=== PATIENT | female | born 1970 | race Caucasian/White ===

== ENCOUNTER 2016-08-30 10:12 | Emergency (ER) | payer BC, MEDICARE ==
--- NOTE | ~2016-08-30 | EKG ---
PATIENT: RONNY TEMPLE UNIT #: [id number] Ventricular Rate: 96 BPM Atrial Rate: 96 BPM P-R Interval: 158 ms QRS Duration: 68 ms Q-T Interval: 354 ms QTC Calculation(Bezet): 447 ms P [place]: 67 degrees Calculated R [place]: 33 degrees Calculated T [place]: 48 degrees Diagnosis Line: Normal sinus rhythm Diagnosis Line: Normal ECG Diagnosis Line: When compared with ECG of 07-MAR-2016 18:19, Diagnosis Line: No significant change was found Diagnosis Line: Confirmed by LAUREN DELUCA MD ([id number]) on Diagnosis Line: 10/13/2016 4:07:12 PM INTERPRETING MD: MEDINA
--- NOTE | ~2016-08-30 | CT16 ---
[facility]. [facility] A Service of [facility] RADIOLOGY TEXT RESULTS PATIENT: RONNY TEMPLE LOCATION: SED : 68 UNIT #: [id number] AGE: [address]: Hernandez Mancilla MD SEX: F ORDER DR: [id number] [address] [address] [id number] MR#: [id number] Acc #: [id number] NAME: RONNY TEMPLE : 1970 SEX: F STUDY DATE/TIME: 08/30/2016 12:02 UNIT: SED ROOM: STUDY DESCRIPTION: CT Angio Chest for PE Attending Physician: Hernandez Mancilla M.D. Ordering Physician: Hernandez Mancilla M.D. Primary Care Physician: Samuel Cortés M.D. MEDICAL IMAGING REPORT This report is preliminary unless electronic signature is present. EXAM CT angiogram chest PE protocol HISTORY Right shoulder pain after moving furniture for 2 days. Dull chest pain today. Elevated D-dimer. TECHNIQUE Axial images were performed through the chest following IV contrast. 3-D coronal reconstructed images reviewed at a workstation. This CT exam was performed with one or more of the following radiation dose reduction techniques: automatic exposure control, adjustment of mA and/or kV according to patient size, and iterative reconstruction. FINDINGS Pulmonary parenchyma unremarkable except for a densely calcified left upper lobe granuloma. Normal enhancement of the pulmonary arteries. No evidence of embolus. Heart size within normal limits. Calcified mediastinal nodes compatible with prior granulomatous disease. Upper abdomen unremarkable. Osseous structures, thoracic inlet unremarkable. IMPRESSION No acute intrathoracic abnormality. In particular, no evidence of pulmonary embolus. Dictated by... Jessie Loya M.D. THIS IS AN ELECTRONICALLY VERIFIED REPORT Jessie Loya M.D. at 08/30/2016 5:03 PM HERRERA/flip [facility] A Service [facility] RADIOLOGY TEXT RESULTS PATIENT: RONNY TEMPLE LOCATION: SED : [birth year] UNIT #: [id number] AGE: [address]: Hernandez Mancilla MD SEX: F ORDER DR: TD: 08/30/2016 15:21 JOB #: [id number] MEDICAL IMAGING REPORT
--- NOTE | ~2016-08-30 | CR230 ---
[facility]. [facility] A Service of [facility] RADIOLOGY TEXT RESULTS PATIENT: RONNY TEMPLE LOCATION: SED : [birth year] UNIT #: [id number] AGE: [address]: Hernandez Mancilla MD SEX: F ORDER DR: [id number] [place] [id number] MR#: [id number] Acc #: [id number] NAME: RONNY TEMPLE : 1970 SEX: F STUDY DATE/TIME: 08/30/2016 12:09 UNIT: SED ROOM: STUDY DESCRIPTION: CR Shoulder Min 2 View Rt Attending Physician: Hernandez Mancilla M.D. Ordering Physician: Hernandez Mancilla M.D. Primary Care Physician: Samuel Cortés M.D. MEDICAL IMAGING REPORT This report is preliminary unless electronic signature is present. EXAM 3 views of the right shoulder INDICATION Right shoulder pain after moving furniture 2 days ago. Patient reports still chest pain today. FINDINGS No acute fracture or subluxation of the right shoulder is identified. No aggressive osseous abnormalities are seen. Patient does have some mild degenerative changes involving the right AC joint. There is surgical clips seen within the sella. IMPRESSION No acute findings. Dictated by... Madeline Daniels M.D. THIS IS AN ELECTRONICALLY VERIFIED REPORT Madeline Daniels M.D. at 08/30/2016 5:25 PM AFF/aa TD: 08/30/2016 15:38 JOB #: [id number] MEDICAL IMAGING REPORT
[~2016-08-30 10:12] MED LIST: ALBUTEROL 0.5ML INH; ALBUTEROL INHALER; ALBUTEROL NEB; ALBUTEROL17 GM IN; ALBUTEROL20 ml INH; ALLERGY10 M2 PO; ASPIRIN PO; ASPIRIN325 M1 PO; BAYER ASPIRIN325 M1 PO; COMBIVENT U/D3 M2 INH; DICLOFENAC PO; ECOTRIN325 MG PO; FLEXERIL PO; GABAPENTIN300 M2 PO; GABAPENTIN300 MG PO; LIPITOR PO; MEDROL DOSEPAK4 MG PO; MEDROL PO; MIRAPEX0.25 MG PO; MUSCLE RELAXER; NEURONTIN; NEURONTIN PO; NEURONTIN300 MG PO; NICOTINE TRANSD14 MG TD; OMEPRAZOLE20 M1 PO; PEPCID PO; PHENERGAN25 MG PO; PRAVACHOL20 MG PO; PREDNISONE PO; PRILOSEC20 MG PO; PROTONIX PO; RESTLESS LEG MED PO; SYMBICORT IN; TESSALON200 MG PO; TOPAMAX PO; TRAMADOL HCL50 M1 PO; TYLENOL325 M1 PO; VICODIN 5/500 T1 TAB PO; VITAMIN B12 INJECT; VOLTAREN75 MG PO; XOPENEX0.31 MG/3; ZANAFLEX2 M1 PO; ZANAFLEX2 MG PO; ZANAFLEX4 M1; ZANAFLEX4 M1 PO; ZANTAC150 MG PO; [UNRECOGNIZED DRUG - REMARK]
[2016-08-30 11:11] LABS: BASOPHIL% 0.5 % (0-2.5); EOSINOPHIL# 0.1 X10e3 (0-0.7); EOSINOPHIL% 1.3 % (0.0-7.0); HEMATOCRIT 40.4 % (35.0-45.0); HEMOGLOBIN 13.5 gm/dL (12.0-16.0); LYMPHOCYTE# 2.1 X10e3 (1.0-3.5); LYMPHOCYTE% 23.6 % (17.0-45.0); MEAN CELL VOLUME 90.4 FL (83-96); MEAN CORPUSCULAR HEMOGLOBIN 30.1 PG (28-34); MEAN CORPUSCULAR HGB CONC 33.3 g/dL (30-36); MEAN PLATELET VOLUME 9.1 FL (6.5-11.5); MONOCYTE# 0.7 X10e3 (0-1.0); MONOCYTE% 7.8 % (3.0-12.0); NEUTROPHIL% 66.8 % (40-75); PLATELET COUNT 177 X10e3 (140-420); RED BLOOD COUNT 4.47 X10e (3.90-5.30); RED CELL DISTRIBUTION WIDTH 13.3 % (11.0-15.5); WHITE BLOOD COUNT 8.9 X10e3 (4.0-10.5)
[2016-08-30 11:14] LABS: DIFF IND NO
[2016-08-30 11:26] LABS: POC - CKMB <1.0 ng/mL (0.0-7.9); POC - MYOGLOBIN 61.3 ng/mL (0.0-169.0); POC - TROPONIN <0.05 ng/mL (<=0.05)
[2016-08-30 11:33] LABS: ALBUMIN SERUM 3.5 g/dL (3.5-5.0); ALKALINE PHOSPHATASE 61 U/L (32-92); ALT (SGPT) 18 U/L (10-40); AST (SGOT) 17 U/L (10-42); BILIRUBIN,TOTAL 0.2 mg/dL (0.2-2.0); BLOOD UREA NITROGEN 10 mg/dL (9-23); BUN/CREATININE RATIO 14.28; CALCIUM SERUM 8.4 mg/dL (8.4-10.2); CARBON DIOXIDE 27 mmol/L (22-31); CHLORIDE 106 mmol/L (100-111); CREATININE SERUM 0.7 mg/dL (0.6-1.4); GLOM FILT RATE Estimated ABOVE60 mL/min (>60); GLUCOSE FASTING 85 mg/dL (70-110); POTASSIUM 3.8 mmol/L (3.5-5.1); PROTEIN TOTAL SERUM 6.7 g/dL (6.0-8.3); SODIUM 140 mmol/L (135-145)
== END 2016-08-30 13:40 | disposition home or self-care (01) ==
LOC: SED 10:12
PROVIDERS: Emergency Medicine
DX: M50.10 Cervical disc disorder with radiculopathy, unspecified cervical region (principal); M51.16 Intervertebral disc disorders with radiculopathy, lumbar region; R07.89 Other chest pain; I10 Essential (primary) hypertension; J44.9 Chronic obstructive pulmonary disease, unspecified; G25.81 Restless legs syndrome; F17.210 Nicotine dependence, cigarettes, uncomplicated; Z88.8 Allergy status to other drugs, medicaments and biological substances
CPT/HCPCS: 36415; 71275; 73030; 80053; 82553; 83874; 84484; 84703; 85025; 85379; 93005; 94640; 99284; J1885; J2550; Q9967

== ENCOUNTER 2017-02-20 18:11 | Emergency (ER) | payer BC, MEDICARE ==
[~2017-02-20] VITALS: Ht 160 cm; Wt 87.1 kg
--- NOTE | ~2017-02-20 | EKG ---
PATIENT: RONNY TEMPLE UNIT #: [id number] Ventricular Rate: 84 BPM Atrial Rate: 84 BPM P-R Interval: 140 ms QRS Duration: 76 ms Q-T Interval: 378 ms QTC Calculation(Bezet): 446 ms P [place]: 26 degrees Calculated R [place]: 12 degrees Calculated T [place]: 16 degrees Diagnosis Line: Normal sinus rhythm Diagnosis Line: Normal ECG Diagnosis Line: When compared with ECG of 20-FEB-2017 18:32, Diagnosis Line: (unconfirmed) Diagnosis Line: No significant change was found Diagnosis Line: Confirmed by THELMA COTE MD ([id number]) on 02/21/2017 Diagnosis Line: 5:09:58 PM INTERPRETING MD: ROCAEL LOYD
--- NOTE | ~2017-02-20 | CR72 ---
[facility] A Service of [facility] RADIOLOGY TEXT RESULTS PATIENT: RONNY TEMPLE LOCATION: [facility] : [birth year] UNIT #: [id number] AGE: [address]: Emmanuel Chua DO SEX: F ORDER DR: [id number] [facility] [address] [place], [place] [address] [id number] E MR#: [id number] Acc #: [id number] NAME: RONNY TEMPLE. : 1970 SEX: F STUDY DATE/TIME: 02/20/2017 23:21 UNIT: [facility] ROOM: STUDY DESCRIPTION: CR Chest Single View Portable Attending Physician: Emmanuel Chua D.O. Ordering Physician: Emmanuel Chua D.O. Primary Care Physician: Samuel Cortés M.D. MEDICAL IMAGING REPORT This report is preliminary unless electronic signature is present EXAM Chest x-ray 02/20/2017 HISTORY 47-year-old female in the ED complaining of left side chest pain, shortness of air and nausea beginning earlier today. TECHNIQUE AP portable chest x-ray. FINDINGS Heart size and pulmonary vascularity are normal. The lungs are clear. No visible pulmonary infiltrate or pleural effusion. Benign calcified granulomas in the left midlung and left hilum. Old healed right seventh rib fracture. Right axillary surgical clips. No change since 03/07/2016. IMPRESSION No active disease. No change since 03/07/2016. Dictated by... Khanh Ro M.D. THIS IS AN ELECTRONICALLY VERIFIED REPORT Khanh Ro M.D. at 02/24/2017 11:06 PM JOVANNY/cindy TD: 02/21/2017 13:09 JOB #: [id number] MEDICAL IMAGING REPORT Page 1 of 1 COPY
[2017-02-20 19:54] LABS: POC - CKMB <1.0 ng/mL (0.0-7.9); POC - TROPONIN <0.05 ng/mL (<=0.05)
[2017-02-20 19:58] LABS: BASOPHIL% 0.3 % (0-2.5); EOSINOPHIL# 0.1 X10e3 (0-0.7); EOSINOPHIL% 1.2 % (0.0-7.0); HEMATOCRIT 41.5 % (35.0-45.0); LYMPHOCYTE# 2.6 X10e3 (1.0-3.5); LYMPHOCYTE% 24.2 % (17.0-45.0); MEAN CELL VOLUME 91.1 FL (83-96); MEAN CORPUSCULAR HEMOGLOBIN 30.7 PG (28-34); MEAN CORPUSCULAR HGB CONC 33.7 g/dL (30-36); MEAN PLATELET VOLUME 9.4 FL (6.5-11.5); MONOCYTE# 0.6 X10e3 (0-1.0); MONOCYTE% 5.5 % (3.0-12.0); NEUTROPHIL# 7.4 X10e3 (1.5-7.1); NEUTROPHIL% 68.8 % (40-75); PLATELET COUNT 190 X10e3 (140-420); RED BLOOD COUNT 4.56 X10e (3.90-5.30); RED CELL DISTRIBUTION WIDTH 12.9 % (11.0-15.5); WHITE BLOOD COUNT 10.7 X10e3 (4.0-10.5)
[2017-02-20 19:59] LABS: DIFF IND NO
[2017-02-20 20:22] LABS: ALBUMIN SERUM 3.8 g/dL (3.5-5.0); ALKALINE PHOSPHATASE 62 U/L (32-92); ALT (SGPT) 24 U/L (10-40); AST (SGOT) 14 U/L (10-42); BILIRUBIN, DIRECT <0.1 mg/dL (0.0-0.2); BILIRUBIN,INDIRECT 0.4 mg/dL (0.0-0.9); BILIRUBIN,TOTAL 0.5 mg/dL (0.2-2.0); BLOOD UREA NITROGEN 7 mg/dL (9-23); BUN/CREATININE RATIO 7.77; CALCIUM SERUM 8.8 mg/dL (8.4-10.2); CARBON DIOXIDE 24 mmol/L (22-31); CHLORIDE 106 mmol/L (100-111); CREATININE SERUM 0.9 mg/dL (0.6-1.4); GLOM FILT RATE Estimated 75.7 mL/min (>60); GLUCOSE FASTING 161 mg/dL (70-110); POTASSIUM 3.7 mmol/L (3.5-5.1); PROTEIN TOTAL SERUM 7.4 g/dL (6.0-8.3); SODIUM 138 mmol/L (135-145)
[2017-02-20 22:19] LABS: POC - CKMB <1.0 ng/mL (0.0-7.9); POC - TROPONIN <0.05 ng/mL (<=0.05)
== END 2017-02-21 00:25 | disposition left against medical advice (07) ==
LOC: CED 18:11
PROVIDERS: Emergency Medicine
DX: R07.9 Chest pain, unspecified (principal); F32.9 Major depressive disorder, single episode, unspecified; J44.9 Chronic obstructive pulmonary disease, unspecified; G43.909 Migraine, unspecified, not intractable, without status migrainosus; G47.33 Obstructive sleep apnea (adult) (pediatric); F17.210 Nicotine dependence, cigarettes, uncomplicated; Z98.51 Tubal ligation status; Z98.890 Other specified postprocedural states; Z88.5 Allergy status to narcotic agent; Z88.8 Allergy status to other drugs, medicaments and biological substances; Z79.82 Long term (current) use of aspirin; Z79.899 Other long term (current) drug therapy
CPT/HCPCS: 36415; 71010; 80048; 80076; 82553; 83880; 84484; 85025; 85379; 93005; 99285